=== PATIENT | female | born 1975 | race Caucasian/White ===

== ENCOUNTER 2019-07-01 08:06 | Emergency (ER) | payer OTHER ==
[2019-07-01 08:17] VITALS: BP 127/77; PULSE 99; TEMP 98.8; BMI 35.4
[2019-07-01] MEDS ORDERED: predniSONE 20 MG TABLET (UD) PO ONE (08:43)
[2019-07-01] MEDS ORDERED: ALBUTEROL SO4 2.5/IPRATROPIUM 0.5 INH SOL 3 ML VIAL.NEB. NEB ONE ×2 (08:43→08:44)
--- NOTE | 2019-07-01 08:43 | PDOC ---
History of Present Illness - General Chief Complaint: Respiratory Stated Complaint: SOB / COLD SYMPTOMS Time Seen by Provider: 07/01/19 08:35 History Source: Patient, Family Exam Limitations: No Limitations - History of Present Illness Initial Comments: 07/01/19 08:44 Patient came for evaluation of persistent cough, runny nose, mild pleuritic chest pain for the past 5 days. [facility] on , and swabbed negative for rapid strep throat. States his been using [id number] medications with some mild relief. However has persistent coughing with runny nose. Is this a multiple visit Asthma Patient?: No Timing/Duration: reports: getting worse Severity: reports: mild, moderate Associated Symptoms: reports: cough, fever/chills, nasal congestion, nasal drainage, sore throat Past History - Travel Traveled outside of the country in the last 30 days: No Close contact w/someone who was outside of country & ill: No - Past Medical History Allergies/Adverse Reactions: Allergies Allergy/AdvReac Type Severity Reaction Status Date / Time No Known Allergies Allergy Verified 07/01/19 08:11 Home Medications: Ambulatory Orders Albuterol 0.083% Nebulizer Lisa [Ventolin 0.083% Nebulizer Soln -] 1 neb NEB Q4H PRN #30 vial 07/01/19 predniSONE [Deltasone -] 20 mg PO BID #8 tablet 07/01/19 COPD: No Other medical history: takes tramadol for aan old leg injury - Suicide/Smoking/Psychosocial Hx Smoking History: Never smoked Review of Systems - Review of Systems Able to Perform ROS?: Yes Is the patient limited Croatian proficient: Yes Constitutional: Yes: Symptoms Reported, See HPI, Loss of Appetite, Malaise HEENTM: Yes: Symptoms Reported, See HPI, Nose Congestion, Throat Pain Respiratory: Yes: Symptoms reported, See HPI, Cough, Wheezing Integumentary: Yes: Symptoms Reported, See HPI Hematologic/Lymphatic: Yes: Symptoms Reported All Other Systems: Reviewed and Negative *Physical Exam - Vital Signs Last Vital Signs Temp Pulse Resp BP Pulse Ox 98.8 F 99 H 18 127/77 99 07/01/19 08:08 07/01/19 08:08 07/01/19 08:08 07/01/19 08:08 07/01/19 08:08 - Physical Exam General Appearance: Yes: Nourished, Appropriately Dressed, Apparent Distress, Mild Distress HEENT: positive: EOMI, LYNNE, Normal ENT Inspection, TMs Normal, Pharynx Normal Neck: positive: Tender, Supple Respiratory/Chest: positive: Decreased Breath Sounds, Wheezing. 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 uri with asthmatic bronchitis - will treat with short course of steroids and cont Nebs. *DC/Admit/Observation/Transfer Diagnosis at time of Disposition: Bronchitis - Discharge Dispostion Disposition: HOME Condition at time of disposition: Stable Decision to Admit order: No - Referrals - Patient Instructions Printed Discharge Instructions: DI for Acute Bronchitis Additional Instructions: Rest, drink lots of fluids: Teas, water, soups, Pedialyte Saltwater gargles Steamy showers/seem to face break up mucus Avoid contact with others until fevers and cough resolved Lots of handwashing and good hygiene Continue [id number] medications for symptomatic relief Tylenol or Motrin for fever and pain Continue albuterol nebulizers every 4-6 hours for the next 2 days then as needed for continued cough Prednisone as directed until completed Followup with private physician in one to 2 days Return to emergency department / pediatric hospital for worsened symptoms, fevers, dehydration - Post Discharge Activity Forms/Work/School Notes: Back to Work, Parent(s) Back to Work Note
[2019-07-01] MEDS ORDERED: predniSONE 20 MG TABLET (UD) ONE (08:44)
== END 2019-07-01 09:24 | disposition home or self-care (01) ==
LOC: JER 08:06 → JERFT 08:06
PROC: 3E0F7GC Introduction of Other Therapeutic Substance into Respiratory Tract, Via Natural or Artificial Opening (ICD-10-PCS; principal; 2019-07-01)
DX: J40 Bronchitis, not specified as acute or chronic (principal)
CPT/HCPCS: 99282-25

== ENCOUNTER 2020-04-12 08:22 | Emergency (ER) | payer OTHER ==
[2020-04-12 08:32] VITALS: TEMP 98.4; BMI 33.8
[2020-04-12] MEDS ORDERED: ACETAMINOPHEN 500 MG TABLET (FP) PO ONE (09:37)
[2020-04-12] MEDS ORDERED: Methylnaltrexone Bromide 12 MG/0.6 ML KIT SQ ONE (10:05)
--- NOTE | 2020-04-12 10:06 | PDOC ---
Documentation entered by Deb Shaikh SCRIBE, acting as scribe for January Fraser MD. January Fraser MD: This documentation has been prepared by the scribe, Deb Shaikh SCRIBE, under my direction and personally reviewed by me in its entirety. I confirm that the documentation accurately reflects all work, treatment, procedures, and medical decision making performed by me. Attending Attestation - Resident Resident Name: Navneet Villarreal - ED Attending Attestation I have performed the following: I have examined & evaluated the patient, The case was reviewed & discussed with the resident, I agree w/resident's findings & plan, Exceptions are as noted - HPI HPI: 44 yo F history of hemorrhoids since childbirth presents with a painful rectal lesion. Pain is seere, associated with a large bump. She states it started 2 days ago. No fever, chills. She has prior history with hemorrhoids but this pain is different. - Physicial Exam PE: GENERAL: Awake, alert, and fully oriented, in no acute distress HEAD: No signs of trauma EYES: PERRLA, EOMI, sclera anicteric, conjunctiva clear ENT: Auricles normal inspection, hearing grossly normal, nares patent, oropharynx clear without exudates. Moist mucosa NECK: Normal ROM, supple, no lymphadenopathy, JVD, or masses LUNGS: Breath sounds equal, clear to auscultation bilaterally. No wheezes, and no crackles HEART: Regular rate and rhythm, normal S1 and S2, no murmurs, rubs or gallops ABDOMEN: Soft, nontender, normoactive bowel sounds. No guarding, no rebound. No masses EXTREMITIES: Normal range of motion, no edema. No clubbing or cyanosis. No cords, erythema, or tenderness NEUROLOGICAL: Cranial nerves II through XII grossly intact. Normal speech, normal gait. Motor and sensation intact SKIN: Warm, dry, normal turgor, no rashes or lesions noted. RECTAL: +Large thrombosed hemorrhoid to the 3 o'clock position, no surrounding erythema. - Medical Decision Making Pt with thrombosed hemorrhoid. Will I&D in the ED. Will give methylnaltrexone, as her constipation is opioid-related. May help with the cause of her symptoms. Discharge - Discharge Information Problems reviewed: Yes Clinical Impression/Diagnosis: Hemorrhoids, thrombosed Condition: Improved Disposition: HOME - Follow up/Referral Referrals: Pj Milton MD [Staff Physician] - - Patient Discharge Instructions Additional Instructions: You came into the ER with rectal pain. You had a thrombosed hemorrhoid which we cut open and took out the blood clot from. We applied a sterile dressing which you should keep on for the next 24 hours if possible. Please call up the surgeon Dr. Milton we are referring you to in the next 24 to 48 hours to arrange for a follow up appointment. Come back to the ER immediately with any new or worsening concerns. If you are in pain please sit on the Bath sitz 4 times daily, Pain control (tylenol OTC), stool softener daily, refrain from bearing down. Recommend to follow up with PCP and surgeon Print Language: WALLISIAN - Post Discharge Activity Work/Back to School Note: Back to Work
[2020-04-12] MEDS ORDERED: ACETAMINOPHEN 325 MG TABLET (FP) ONE (10:26)
--- NOTE | 2020-04-12 10:51 | PDOC ---
History of Present Illness - General Chief Complaint: Wound Stated Complaint: Abscess Boil Time Seen by Provider: 04/12/20 08:50 - History of Present Illness Initial Comments: 04/12/20 10:55 44 F with no PMH came to the ED with CC of painful boil on her anus. The pain was severe, 9/10, localizing around the anus, pressure like sensation. Pain started out 48 hrs ago. She denies fever, chill, N/V/D, chest pain, stomach Past History - Medical History Allergies/Adverse Reactions: Allergies Allergy/AdvReac Type Severity Reaction Status Date / Time No Known Allergies Allergy Verified 04/12/20 08:27 Home Medications: Ambulatory Orders Albuterol 0.083% Nebulizer Lisa [Ventolin 0.083% Nebulizer Soln -] 1 neb NEB Q4H PRN #30 vial 07/01/19 Tramadol HCl 50 mg PO QID PRN 04/12/20 COPD: No - Psycho-Social/Smoking History Smoking History: Current every day smoker Information on smoking cessation initiated: Yes - Substance Abuse Hx (Audit-C & DAST Scrn) How often the patient has a drink containing alcohol: Monthly or less Score: In Men: 4 or > Positive; In Women: 3 or > Positive: 1 Screen Result (Pos requires Nsg. Audit-10AR): Negative In the last yr the pt used illegal drug/Rx for NonMed reason: No Score: Yes response is considered Positive: 0 Screen Result (Positive result requires Nsg. DAST-10): Negative Review of Systems - Review of Systems Comments:: 04/12/20 11:08 GENERAL/CONSTITUTIONAL: No fever or chills. No weakness. HEAD, EYES, EARS, NOSE AND THROAT: No change in vision. No ear pain or discharge. No sore throat. CARDIOVASCULAR: No chest pain or shortness of breath. RESPIRATORY: No cough, wheezing, or hemoptysis. GASTROINTESTINAL: No nausea, vomiting, diarrhea GENITOURINARY: No dysuria, frequency, or change in urination. Pain on anus MUSCULOSKELETAL: No joint or muscle swelling or pain. No neck or back pain. SKIN: No rash NEUROLOGIC: No headache, vertigo, loss of consciousness, or change in strength/sensation. ENDOCRINE: No increased thirst. No abnormal weight change. HEMATOLOGIC/LYMPHATIC: No anemia, easy bleeding, or history of blood clots. ALLERGIC/IMMUNOLOGIC: No hives or skin allergy. *Physical Exam - Vital Signs Last Vital Signs Temp Pulse Resp BP Pulse Ox 98.4 F 98 H 20 116/61 99 04/12/20 08:27 04/12/20 08:27 04/12/20 08:27 04/12/20 08:27 04/12/20 08:27 - Physical Exam General Appearance: Yes: Nourished, Appropriately Dressed HEENT: positive: EOMI, LYNNE Neck: positive: Trachea midline, Supple Respiratory/Chest: positive: Lungs Clear, Normal Breath Sounds Cardiovascular: positive: Regular Rhythm, Regular Rate, S1, S2 Gastrointestinal/Abdominal: positive: Normal Bowel Sounds, Soft Musculoskeletal: positive: Normal Inspection Extremity: positive: Normal Capillary Refill, Normal Inspection, Normal Range of Motion Integumentary: positive: Normal Color, Dry 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 She has a external thromsed hemorroid inflamed up around 2.5 cm. It was incised and drained, clots were removed. Bacitracine and sterile dressing were applied. Patient were given surgeon Dr. Milton phone number to follow up. Work note was given as well. Discharge - Discharge Information Problems reviewed: Yes Clinical Impression/Diagnosis: Hemorrhoids, thrombosed Condition: Improved Disposition: HOME - Admission No - Follow up/Referral Referrals: Pj Milton MD [Staff Physician] - - Patient Discharge Instructions Additional Instructions: You came into the ER with rectal pain. You had a thrombosed hemorrhoid which we cut open and took out the blood clot from. We applied a sterile dressing which you should keep on for the next 24 hours if possible. Please call up the surgeon Dr. Milton we are referring you to in the next 24 to 48 hours to arrange for a follow up appointment. Come back to the ER immediately with any new or worsening concerns. If you are in pain please sit on the Bath sitz 4 times daily, Pain control (tylenol OTC), stool softener daily, refrain from bearing down. Recommend to follow up with PCP and surgeon Print Language: SLOVAK - Post Discharge Activity Work/Back to School Note: Back to Work
[2020-04-12 11:09] VITALS: BP 117/72; PULSE 68
== END 2020-04-12 11:20 | disposition home or self-care (01) ==
LOC: JER 08:22
PROC: 0D9QXZZ Drainage of Anus, External Approach (ICD-10-PCS; principal; 2020-04-12)
PROC: 3E023GC Introduction of Other Therapeutic Substance into Muscle, Percutaneous Approach (ICD-10-PCS; principal; 2020-04-12)
DX: K64.5 Perianal venous thrombosis (principal)
CPT/HCPCS: 99284-25

== ENCOUNTER 2021-03-04 10:41 | Emergency (ER) | payer OTHER ==
[2021-03-04 11:10] VITALS: BP 138/78; PULSE 102; TEMP 98.8; BMI 33.3
[2021-03-04] MEDS ORDERED: ACETAMINOPHEN 500 MG TABLET (FP) PO ONE (11:34)
[2021-03-04] MEDS ORDERED: ACETAMINOPHEN 500 MG TABLET (FP) ONE (11:38)
[2021-03-04] MEDS ORDERED: CYCLOBENZAPRINE HCL 10 MG TABLET (FP) ONE (11:38)
[2021-03-04] MEDS ORDERED: CYCLOBENZAPRINE HCL 5 MG TABLET PO SCH (11:45)
[2021-03-04 12:02] LABS: EPI CELLS >36 /uL (0-25.1); HYALINE CASTS 6 /uL (0-3.1); PH,URINE 5.5 (5.0-8.0); URINE APPEARANCE CLOUDY; URINE BACTERIA 7773 /uL (0-1359); URINE BILIRUBIN NEGATIVE (NEGATIVE); URINE COLOR YELLOW; URINE GLUCOSE (UA) NEGATIVE (NEGATIVE); URINE KETONE NEGATIVE (NEGATIVE); URINE LEUK ESTERASE 2+ (NEGATIVE); URINE NITRITE NEGATIVE (NEGATIVE); URINE PROTEIN NEGATIVE (NEGATIVE); URINE RBC 82 /uL (0-23.9); URINE UROBILINOGEN 0.2 mg/dL (0.2-1.0); URINE WBC 277 /uL (0-25.8)
== END 2021-03-04 12:27 | disposition home or self-care (01) ==
LOC: JERFT 10:41 → JER 10:41 → JERFT 12:27
DX: M54.40 Lumbago with sciatica, unspecified side (principal)
CPT/HCPCS: 72100-TC-FY; 81003; 84703; 87086; 99284-25